=== PATIENT | female | born 1940 | race Caucasian/White ===

== ENCOUNTER → 2016-07-11 | Outpatient (CLI) | payer MEDICARE, MEDICAID ==
[~2016-07-11] MED LIST: B-121000 MCG PO; CITRACAL+D(315M1 TAB PO; COLACE100 MG PO; COLCHICINE0.6 MG PO; COUMADIN ** IA3 MG PO; COUMADIN ** IA5 MG PO; COUMADIN6 MG PO; CYMBALTA60 MG PO; DECADRON1 MG PO; DEMADEX20 MG PO; DEPAKOTE EXTEN250 MG PO; DEXTROSE 50%50 ML IVP; DEXTROSE IVP; DILAUDID 2MG(HYD2 MG PO; DULCOLAX10 MG R; DUONEB INH; DURAGESIC 100100 MCG TRANS; FEOSOL325 MG PO; FLEET133 ML R; FLEXERIL10 MG PO; FLOMAX0.4 MG PO; FLORASTOR250 MG PO; GLUCAGON 1 MG PE1 MG SUB-Q; GLUCOTROL10 MG PO; GUAIFENESIN400 MG PO; KEPPRA500 MG PO; LEVEMIR100 UNIT/1 SUB-Q; LEVOTHROID (SY88 MCG PO; LEXAPRO20 MG PO; LIDOCAINE 1% MD20 M1 IDER; LIORESAL10 MG PO; LIPITOR10 MG PO; LOPRESSOR25 MG PO; MACRODANTIN *IA50 MG PO; MAG-OX-400(241400 MG PO; MEGACE400 MG/10 PO; MILK OF MA400 MG/5 M PO; MIRALAX17 GM PO; NACL TABS1 GM PO; NARCAN0.4 MG/ML IVP; NEURONTIN100 MG PO; NOVOLOG100 UNIT/M SUB-Q; NYSTATIN1 EAC1 TOP; PROTONIX40 MG PO; REMERON15 MG PO; ROBITUSSIN100 MG/5 M PO; SYSTANE BALANCE10 ML OPHTH; TEARGEN1 BOT OPHTH; TESSALON PERLE100 MG PO; THERAGRAN-M1 TAB PO; TYLENOL325 MG PO; ULTRAM50 MG PO; VITAMIN B-1000 MCG/1 IM; VITAMIN C500 M1 PO; XARELTO15 MG PO; ZOCOR80 MG PO; ZOFRAN4 MG PO; ZYLOPRIM100 MG PO; ZYRTEC10 MG PO
--- NOTE | ~2016-07-11 | PUL ---
[facility] AGE[facility] 75 Y [address] ROOM: [place] [id number] LOCATION: [facility] ADMIT DATE: 07/11/2016 Pulmonary DISCHARGE DATE: FAMILY PHYSICIAN: Lit Morris MD ATTENDING PHYSICIAN: JESSICA CASTRO NAME OF PROCEDURE: Sleep Study DATE OF PROCEDURE: 07/11/16 TECH: LC Breen TEST #: [facility] [place]# [id number] MEDICAL HISTORY: The patient is a 75-year-old overweight woman with a history of daytime sleepiness, snoring, and chronic respiratory failure. SLEEP STAGE SUMMARY: The patient was studied for 453 minutes of which she slept 396 minutes. She fell asleep in 2 minutes and slept for 87% of the night. Sleep architecture revealed a decline in slow wave and REM sleep. RESPIRATORY SUMMARY: Oxygen saturations ranged from 93-97%. The patient is on 2 liters of oxygen around the clock and this study was done on 2 liters. There were no hypopneas there was 1 apnea for an apnea/hypopnea index less than 1 event per hour. EKG SUMMARY: Average heart rate during sleep was 88 beats per minute. No dysrhythmias were noted. LIMB MOVEMENT SUMMARY: No clinically relevant periodic limb movements were noted. SUMMARY: No evidence of significant obstructive sleep apnea and 2 liters of oxygen appears adequate to prevent any significant oxygen desaturations. PLAN: Patient will receive results from the ordering provider. MD PROSPER BELTRAN/ [facility]GE[facility] 75 Y [address] ROOM: [place] [address] LOCATION: [facility] ADMIT DATE: 07/11/2016 Pulmonary DISCHARGE DATE: FAMILY PHYSICIAN: Lit Morris MD ATTENDING PHYSICIAN: JESSICA CASTRO /[id number] dtt: 07/29/16 1017 , Bryon Sanches: 07/14/16 0816
== END | disposition disaster alternative care site (69) ==
LOC: GSLP 20:24
DX: G47.10 Hypersomnia, unspecified (principal); G47.33 Obstructive sleep apnea (adult) (pediatric)